=== PATIENT | female | born 1995 | race Caucasian/White ===

== ENCOUNTER 2021-03-04 00:57 | Emergency (ER) | payer OTHER ==
[2021-03-04] MEDS ORDERED: Lidocaine 1% 10 ML MDV INJECT ONE (02:15)
[2021-03-04] MEDS ORDERED: Bupivacaine 0.5% 10 ML SDV INJECT ONE (02:15)
--- NOTE | 2021-03-04 02:18 | EDM.PDOC ---
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 Majano is a very pleasant 25-year-old woman who now presents the ED after lacerating her right index finger while washing dishes around 01:00 this morning. She did not attempt to treat her finger prior to coming to the ED. She is otherwise uninjured. No prior right index finger injury. Here in the ED, the patient is found to be hemodynamically stable, afebrile, saturating 99% on room air. She appears to be comfortable, in no acute distress. The patient states that her last tetanus vaccination was in 2019. Prior to this morning's finger injury, the patient denies having a recent fever, chills, sore throat, ear pain, nasal or sinus congestion, cough, dyspnea, chest pain, palpitations, nausea, vomiting, constipation, diarrhea, abdominal pain, urinary symptoms, recent weight gain or weight loss, recent bloody bowel movements or black bowel movements, recent joint aches, headaches, or rashes. 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 She has not received a COVID vaccination. - Related Data Allergies Allergy/AdvReac Type Severity Reaction Status Date / Time No Known Allergies Allergy Verified 03/04/21 01:09 Home Meds: Home Meds Methylphenidate HCl [Jornay Pm] 80 mg PO DAILY 03/04/21 [History] lamoTRIgine [Lamictal] 300 mg PO BID 03/04/21 [History] Past Medical History Neurological History: Reports: Seizure Psychiatric History: Reports: ADHD Social & Family History - Tobacco Use Tobacco Use Status *Q: Never Tobacco User - Alcohol Use Alcohol Use History: Yes Alcohol Use Frequency: Socially - Recreational Drug Use Recreational Drug Use: No - Living Situation & Occupation Living situation: Reports: Single, Other (Roomate) Occupation: Employed ([employer]) ED ROS GENERAL - Review of Systems Review Of Systems: Comprehensive ROS is negative, except as noted in HPI. ED EXAM, SKIN/RASH Exam: See Below Exam Limited By: No Limitations General Appearance: Alert, WD/WN, No Apparent Distress Extremities: Other (There is a 2.0 cm curvilinear laceration to the proximal radial aspect of the proximal phalanx of the right 2nd finger. No tendinous injury. Neurovascular status of the finger is intact.) ED SKIN PROCEDURES - Laceration/Wound Repair Right Hand Appearance: Subcutaneous, Irregular (Curvilinear), Clean Distal NVT: Neuro & Vascular Intact, No Tendon Injury Anesthetic Type: Local Local Anesthesia - Lidocaine (Xylocaine): 1% Plain (50:50 admixture) Local Anesthesia - Bupivicaine (Marcaine): 0.5% Plain (50:50 admixture) Local Anesthetic Volume: 3cc Skin Prep: Providone-Iodine (Betadine) Exploration/Debridement/Repair: Wound Explored, In a Bloodless Field, Explored to Base, No Foreign Material Found Closed with: Sutures Lac/Wound length In cm: 2.0 Suture Size: 3-0 (Ethilon) # of Sutures: 5 Suture Type: Interrupted, Simple Drain Placement: No Sterile Dressing Applied: Provider Tetanus Status Addressed: Yes Complications: No Course - Vital Signs Last Recorded V/S: Last Vital Signs Temp 36.8 C 03/04/21 01:10 Pulse 81 03/04/21 01:10 Resp 17 03/04/21 01:10 BP 124/75 03/04/21 01:10 Pulse Ox 99 03/04/21 01:10 - Orders/Labs/Meds Meds: Medications Discontinued Medications Generic Name Dose Route Start Last Admin Trade Name Fanny PRN Reason Stop Dose Admin Bupivacaine HCl 10 ml 03/04/21 02:15 03/04/21 02:29 Bupivacaine 0.5% 10 Ml Sdv INJECT 03/04/21 02:16 10 ml ONETIME ONE Administration Lidocaine HCl 10 ml 03/04/21 02:15 03/04/21 02:29 Lidocaine 1% 10 Ml Mdv INJECT 03/04/21 02:16 10 ml ONETIME ONE Administration - Re-Assessments/Exams Free Text/Narrative Re-Assessment/Exam: 03/04/21 02:16 As above, the patient suffered a 2.0 cm curvilinear laceration to the radial aspect of her proximal phalanx of her left 2nd finger around 01:00 this morning, while washing dishes. I was hoping that I could close the wound with Dermabond, however, the wound bled while the glue was being applied, and therefore did not adhere properly. Unfortunately, I will need to suture the laceration. 03/04/21 02:49 A sterile field was prepared using Betadine and sterile drapes, in the usual fashion. Using a 50-50 admixture of lidocaine 1% without epinephrine and bupivacaine 0.5% without epinephrine, a radial aspect-only digital block to the right 2nd finger was administered, however, the patient had inadequate anesthesia to the wound, therefore additional local anesthetic was infiltrated to the wound. The wound was then closed with 5 simple interrupted sutures using 3-0 Ethilon. The patient tolerated the procedure well. The wound was then cleaned and dressed with a sterile bandage. The sutures should be ready for removal in 7 days. Departure - Departure Time of Disposition: 02:50 Disposition: Home, Self-Care 01 Condition: Good Clinical Impression: Laceration of right index finger - Discharge Information *PRESCRIPTION DRUG MONITORING PROGRAM REVIEWED*: Not Applicable *COPY OF PRESCRIPTION DRUG MONITORING REPORT IN PATIENT TERRELL: Not Applicable Instructions: Laceration Care, Adult, [id number] Referrals: PCP,None [Primary Care Provider] - Forms: ED Department Discharge Additional Instructions: You were seen in the emergency room after cutting your right index finger while washing dishes this morning. Your wound was closed with 5 sutures in the ER. Keep the wound clean with ordinary soap and water when you bathe. Pat dry, then cover with a new Band-Aid, daily. Do not apply antibiotic ointment. If the wound should become wet or dirty, reclean and dry it, then reapply a fresh Band-Aid. The sutures should be ready for removal by , 03/11/2021. They can be removed at the walk-in clinic, or in the ER. Do not try to remove them yourself. It is very unlikely that the wound will become infected, but if there are any concerns of an infection, such as significant redness, swelling, drainage, or inordinate pain, please do not hesitate to return to the ER for reevaluation. Sepsis Event Note (ED) - Evaluation Sepsis Screening Result: No Definite Risk
== END 2021-03-04 03:00 | disposition home or self-care (01) ==
LOC: JD.ED 00:57
DX: S61.210A Laceration without foreign body of right index finger without damage to nail, initial encounter (principal); W26.8XXA Contact with other sharp object(s), not elsewhere classified, initial encounter
CPT/HCPCS: 12001; 99282; J3490